=== PATIENT | female | born 1945 | race Asian ===

== ENCOUNTER 2020-11-21 11:38 | Inpatient (IN) ==
[2020-11-21] MEDS ORDERED: Sennosides 8.6 MG TABLET PO PRN (14:17)
[2020-11-21] MEDS ORDERED: Haloperidol Oral Conc 10 MG/5 ML UDC PO PRN (14:21)
[2020-11-21] MEDS ORDERED: Morphine Sulfate Oral CONC 10 MG/0.5 ML ORAL.SYG SL PRN (14:36)
[2020-11-21] MEDS ORDERED: Hyoscyamine SL 0.125 MG TAB.SUBL SL PRN (14:36)
[2020-11-21] MEDS: *HR* GlipiZIDE XL (24 HR) 10 MG TABLET PO SCH (16:25)
[2020-11-21] MEDS: Insulin DETEMIR 100 UNIT/ML X5UNITS SUBQ SCH (21:00)
[2020-11-21] MEDS: lisinopriL 10 MG TABLET PO SCH (21:00)
[2020-11-22] MEDS: Aspirin 81 MG TAB.CHEW PO SCH (09:29)
[2020-11-22] MEDS: Bumetanide 1 MG TABLET PO SCH (09:30)
[2020-11-22] MEDS: amLODIPine 5 MG TABLET PO SCH (09:30)
[2020-11-22] MEDS: lisinopriL 10 MG TABLET PO SCH ×2 (09:30→21:27)
[2020-11-22] MEDS: *HR* SitaGLIPtin 100 MG TABLET PO SCH (09:32)
[2020-11-22] MEDS: *HR* GlipiZIDE XL (24 HR) 10 MG TABLET PO SCH ×2 (09:32→17:09)
[2020-11-22] MEDS: Insulin DETEMIR 100 UNIT/ML X5UNITS SUBQ SCH (21:27)
[2020-11-23] MEDS: *HR* LORazepam 0.5 MG TABLET PO PRN (01:39)
[2020-11-23] MEDS: Bumetanide 1 MG TABLET PO SCH (08:12)
[2020-11-23] MEDS: amLODIPine 5 MG TABLET PO SCH (08:12)
[2020-11-23] MEDS: Aspirin 81 MG TAB.CHEW PO SCH (08:12)
[2020-11-23] MEDS: lisinopriL 10 MG TABLET PO SCH ×2 (08:13→20:51)
[2020-11-23] MEDS: *HR* SitaGLIPtin 100 MG TABLET PO SCH (08:20)
[2020-11-23] MEDS: *HR* GlipiZIDE XL (24 HR) 10 MG TABLET PO SCH ×2 (08:20→15:53)
[2020-11-23] MEDS: Insulin DETEMIR 100 UNIT/ML X5UNITS SUBQ SCH (20:51)
[2020-11-24] MEDS: Aspirin 81 MG TAB.CHEW PO SCH (08:25)
[2020-11-24] MEDS: *HR* SitaGLIPtin 100 MG TABLET PO SCH (08:25)
[2020-11-24] MEDS: amLODIPine 5 MG TABLET PO SCH (08:25)
[2020-11-24] MEDS: *HR* GlipiZIDE XL (24 HR) 10 MG TABLET PO SCH ×2 (08:25→17:31)
[2020-11-24] MEDS: lisinopriL 10 MG TABLET PO SCH ×2 (08:25→20:44)
[2020-11-24] MEDS: Bumetanide 1 MG TABLET PO SCH (08:25)
[2020-11-24] MEDS: *HR* LORazepam 0.5 MG TABLET PO PRN (20:44)
[2020-11-24] MEDS: Insulin DETEMIR 100 UNIT/ML X5UNITS SUBQ SCH (20:46)
[2020-11-25] MEDS: amLODIPine 5 MG TABLET PO SCH (09:37)
[2020-11-25] MEDS: Bumetanide 1 MG TABLET PO SCH (09:38)
[2020-11-25] MEDS: Aspirin 81 MG TAB.CHEW PO SCH (09:38)
[2020-11-25] MEDS: lisinopriL 10 MG TABLET PO SCH ×2 (09:38→20:46)
[2020-11-25] MEDS: *HR* SitaGLIPtin 100 MG TABLET PO SCH (09:38)
[2020-11-25] MEDS: *HR* GlipiZIDE XL (24 HR) 10 MG TABLET PO SCH ×2 (09:38→17:53)
[2020-11-25] MEDS: *HR* LORazepam 0.5 MG TABLET PO PRN (20:46)
[2020-11-25] MEDS: Insulin DETEMIR 100 UNIT/ML X5UNITS SUBQ SCH (20:47)
[2020-11-26 07:41] VITALS: BP 113/65
[2020-11-26] MEDS: *HR* GlipiZIDE XL (24 HR) 10 MG TABLET PO SCH (09:23)
[2020-11-26] MEDS: lisinopriL 10 MG TABLET PO SCH (09:23)
[2020-11-26] MEDS: Aspirin 81 MG TAB.CHEW PO SCH (09:23)
[2020-11-26] MEDS: amLODIPine 5 MG TABLET PO SCH (09:23)
[2020-11-26] MEDS: Bumetanide 1 MG TABLET PO SCH (09:23)
[2020-11-26] MEDS: *HR* SitaGLIPtin 100 MG TABLET PO SCH (09:23)
== END 2020-11-26 13:45 | disposition home or self-care (01) | DRG 282 ==
LOC: INPPIK 14:32
PROVIDERS: ADMIT Family Medicine; ATTEND Family Medicine